=== PATIENT | female | born 1955 | race Caucasian/White ===

== ENCOUNTER 2017-05-04 10:01 | Inpatient (IN) | payer OTHER ==
[2017-05-04 14:09] LABS: WHITE BLOOD COUNT 8.3 10^3/ul (4.8-10.8)
[2017-05-04 14:09] LABS: ABNORMAL IP MESSAGE 1; HEMATOCRIT 16.1 % (37.0-47.0); MEAN CORPUSCULAR HEMOGLOBIN 29.2 pg (29.0-33.0); MEAN CORPUSCULAR HGB CONC 33.5 g/dl (32.0-37.0); MEAN PLATELET VOLUME 10.7 fl (7.4-10.4); PLATELET COUNT 208 10^3/UL (140-415); RED BLOOD COUNT 1.85 10^6/ul (4.20-5.40)
[2017-05-04 14:13] LABS: POSITIVE DIFF @See below
[2017-05-04 14:15] LABS: ADD MAN DIFF? YES; HEMOGLOBIN 5.4 g/dl (12.0-16.0); PATH REVIEW? YES
[2017-05-04 14:31] LABS: INR 0.95; PROTIME 12.8 Sec (11.9-14.9)
[2017-05-04 14:32] LABS: PARTIAL THROMBOPLASTIN TIME 31.7 Sec (25.0-35.0)
[2017-05-04 14:36] LABS: ALANINE AMINOTRANSFERASE 29 IU/L (13-69); ALBUMIN/GLOBULIN RATIO 1.14; ALKALINE PHOSPHATASE 106 IU/L (42-121); ANION GAP 28 (8-16); ASPARTATE AMINO TRANSFERASE 13 IU/L (15-46); CALCIUM 8.4 mg/dl (8.4-10.2); CARBON DIOXIDE 15 mmol/L (21-31); CHLORIDE 105 mmol/L (97-110); GLUCOSE 141 mg/dl (70-220); POTASSIUM 4.7 mmol/L (3.5-5.1); SODIUM 143 mmol/L (135-144); TOTAL PROTEIN 7.5 g/dl (6.1-8.1)
[2017-05-04 14:44] LABS: BLOOD UREA NITROGEN 140 mg/dl (7-20)
[2017-05-04 14:48] LABS: ANISOCYTOSIS 2+ (0-0); B-TYPE NATRIURETIC PEPTIDE 18700 PG/ML (0-125); BAND NEUTROPHILS #M 0.1 10^3/ul (0.0-0.6); BAND NEUTROPHILS % (M) 2 % (0-4); EOSINOPHILS % (M) 2 % (0-7); GIANT THROMBO% (M) 1 % (0-0); LYMPHOCYTES #M 1.5 10^3/ul (0.8-2.9); LYMPHOCYTES % (M) 19 % (15-51); MICROCYTOSIS 2+ (0-0); MONOCYTE #M 0.5 10^3/ul (0.3-0.9); MONOCYTES % (M) 7 % (0-11); PLATELET ESTIMATE NORMAL; PLATELET MORPHOLOGY COMMENT @See below; POLYCHROMASIA 3+ (0-0); SEGMENTED NEUTROPHILS (M) % 72 % (39-77); SMUDGE%M 3 % (0-0); TROPONIN-I 0.045 ng/ml (0.00-0.12)
[2017-05-04] MEDS ORDERED: SODIUM CHLORIDE 0.9% 1L BAG IV (16:00)
[2017-05-04] MEDS ORDERED: morphine 2 MG INJ IV (16:00)
[2017-05-04] MEDS ORDERED: NACL 0.9% 3 ML SYG IV (16:00)
[2017-05-04] MEDS ORDERED: DOCUSATE SODIUM 100 MG CAP PO (16:00)
[2017-05-04 16:36] LABS: URIC ACID 13.4 mg/dl (3.1-7.9)
[2017-05-04 16:44] LABS: PHOSPHORUS 12.6 mg/dl (2.5-4.9)
[2017-05-04] MEDS ORDERED: GLUCOSE GEL 15 GRAM TUBE BUCCAL (17:00)
[2017-05-04] MEDS ORDERED: GLUCOSE GEL 15 GRAM TUBE PO ×2 (17:00)
[2017-05-04] MEDS ORDERED: DEXTROSE 50% 50 ML SYRINGE IV ×2 (17:00)
[2017-05-04] MEDS ORDERED: GLUCAGON 1 MG INJ IM (17:00)
[2017-05-04] MEDS ORDERED: INSULIN ASPART [NOVOLOG] 3 ML PEN SC ×2 (18:00)
[2017-05-04] MEDS: INSULIN ASPART [NOVOLOG] 3 ML PEN SC ×2 (18:00→21:00)
[2017-05-04] MEDS: HEPARIN 1000 UNITS/ML 10 ML INJ CATHETER (19:00)
[2017-05-04 19:16] LABS: ADD UMIC YES; UR ASCORBIC ACID NEGATIVE (NEGATIVE); UR BACTERIA FEW /HPF (NONE SEEN); UR BILIRUBIN (Dip) NEGATIVE (NEGATIVE); UR BLOOD (Dip) 1+ mg/dL (NEGATIVE); UR CLARITY SLIGHTLY CLOUDY (CLEAR); UR COLOR YELLOW (YELLOW); UR GLUCOSE (Dip) 2+ mg/dL (NEGATIVE); UR KETONES (Dip) NEGATIVE (NEGATIVE); UR LEUKOCYTE ESTERASE (Dip) NEGATIVE Leu/ul (NEGATIVE); UR NITRITE (Dip) NEGATIVE (NEGATIVE); UR RBC 1 /HPF (0-5); UR SPECIFIC GRAVITY (Dip) 1.013 (1.003-1.030); UR SQUAMOUS EPITHELIAL CELL FEW /HPF (FEW); UR TOTAL PROTEIN (Dip) 3+ mg/dl (NEGATIVE); UR UROBILINOGEN (Dip) NEGATIVE (NEGATIVE); UR WBC 4 /HPF (0-5)
[2017-05-04] MEDS: hydrALAzine 20 MG INJ IV (21:17)
[2017-05-04] MEDS: FUROSEMIDE 40 MG INJ IV (23:04)
[2017-05-04] MEDS: LORAZEPAM 0.5 MG TAB PO (23:05)
[2017-05-04] MEDS: NA BICARBONATE 8.4% 50 ML SYG IV (23:05)
[2017-05-04] MEDS: ATORVASTATIN 40 MG TAB PO (23:32)
[2017-05-04] MEDS: SEVELAMER 800 MG TAB PO (23:32)
[2017-05-04] MEDS: SODIUM BICARBONATE (IV ADD) 100 MEQ in DEXTROSE 5% 1,000 ML IV (23:33)
[2017-05-05] MEDS: INSULIN GLARGINE [LANtus] 3 ML PEN SC ×2 (00:46→20:00)
[2017-05-05] MEDS: INSULIN ASPART [NOVOLOG] 3 ML PEN SC ×12 (00:48→21:00)
[2017-05-05] MEDS: ACCU-CHEK XX (02:00)
[2017-05-05] MEDS ORDERED: ACCU-CHEK XX (02:00)
[2017-05-05 06:38] LABS: ADD MAN DIFF? NO; HAAIG REFLEX REFLEX FILED
[2017-05-05 06:43] LABS: BASOPHILS % 0.5 % (0.0-2.0); HEMATOCRIT 22.7 % (37.0-47.0); HEMOGLOBIN 7.9 g/dl (12.0-16.0); LYMPHOCYTES % 11.5 % (15.0-51.0); MEAN CORPUSCULAR HEMOGLOBIN 30.2 pg (29.0-33.0); MEAN CORPUSCULAR HGB CONC 34.8 g/dl (32.0-37.0); MEAN CORPUSCULAR VOLUME 86.6 fl (82.0-101.0); MEAN PLATELET VOLUME 10.7 fl (7.4-10.4); MONOCYTE # 0.5 10^3/ul (0.3-0.9); MONOCYTES % 6.1 % (0.0-11.0); NEUTROPHIL # 6.8 10^3/ul (1.6-7.5); NEUTROPHILS % 81.2 % (39.0-77.0); PLATELET COUNT 180 10^3/UL (140-415); RED BLOOD COUNT 2.62 10^6/ul (4.20-5.40); RED CELL DISTRIBUTION WIDTH 15.3 % (11.5-14.5)
[2017-05-05 06:43] LABS: WHITE BLOOD COUNT 8.4 10^3/ul (4.8-10.8)
[2017-05-05 07:13] LABS: ALANINE AMINOTRANSFERASE 33 IU/L (13-69); ALBUMIN 3.8 g/dl (3.3-4.9); ALBUMIN/GLOBULIN RATIO 1.15; ALKALINE PHOSPHATASE 90 IU/L (42-121); ANION GAP 28 (8-16); ASPARTATE AMINO TRANSFERASE 14 IU/L (15-46); BILIRUBIN,INDIRECT 0.1 mg/dl (0-1.1); BILIRUBIN,TOTAL 0.1 mg/dl (0.2-1.3); CALCIUM 8.4 mg/dl (8.4-10.2); CARBON DIOXIDE 18 mmol/L (21-31); CHLORIDE 106 mmol/L (97-110); GLUCOSE 88 mg/dl (70-220); POTASSIUM 4.6 mmol/L (3.5-5.1); SODIUM 147 mmol/L (135-144); TOTAL PROTEIN 7.1 g/dl (6.1-8.1)
[2017-05-05 07:34] LABS: BLOOD UREA NITROGEN 141 mg/dl (7-20); CREATININE 16.34 mg/dl (0.44-1.00)
[2017-05-05 07:49] LABS: HEPATITIS B SURFACE ANTIGEN NEGATIVE (NEGATIVE)
[2017-05-05 08:07] LABS: HEPATITIS B CORE ANTIBODY NEGATIVE (NEGATIVE)
[2017-05-05] MEDS: FUROSEMIDE 40 MG INJ IV ×2 (08:54→17:18)
[2017-05-05] MEDS: ASPIRIN (EC) 81 MG TAB PO (08:54)
[2017-05-05] MEDS: ALLOPURINOL 100 MG TAB PO (08:55)
[2017-05-05] MEDS: NIFEdipine (XL) 30 MG TAB PO (08:55)
[2017-05-05] MEDS ORDERED: LABETALOL HCL 20MG INJ IV (09:30)
[2017-05-05 11:16] LABS: HEPATITIS C VIRAL ANTIBODY NEGATIVE (NEGATIVE)
[2017-05-05] MEDS: SODIUM BICARBONATE (IV ADD) 100 MEQ in DEXTROSE 5% 1,000 ML IV (14:49)
[2017-05-05 16:49] LABS: PATH REVIEW CH
[2017-05-05] MEDS: EPOETIN ALFA (NESRD) 3,000 UNITS/ML VIAL SC (17:13)
[2017-05-05] MEDS: MANNITOL 25% 50 ML IV (20:12)
[2017-05-05 20:25] LABS: IMMEDIATE SPIN CROSSMATCH 1 4
[2017-05-05] MEDS: ATORVASTATIN 40 MG TAB PO (21:00)
[2017-05-05] MEDS: HEPARIN 1000 UNITS/ML 10 ML INJ CATHETER (21:01)
[2017-05-05] MEDS: hydrALAzine 20 MG INJ IV (21:23)
[2017-05-06] MEDS: ACETAMINOPHEN 325 MG TAB PO ×3 (00:29→15:27)
[2017-05-06] MEDS: ACCU-CHEK XX (02:00)
[2017-05-06] MEDS: ONDANSETRON 4 MG INJ IV (02:22)
[2017-05-06] MEDS: LORAZEPAM 0.5 MG TAB PO (02:22)
[2017-05-06] MEDS: FUROSEMIDE 40 MG INJ IV ×2 (05:54→18:42)
[2017-05-06 06:17] LABS: ADD MAN DIFF? NO
[2017-05-06 06:29] LABS: BASOPHILS % 0.3 % (0.0-2.0); HEMATOCRIT 24.4 % (37.0-47.0); HEMOGLOBIN 8.5 g/dl (12.0-16.0); LYMPHOCYTES # 0.6 10^3/ul (0.8-2.9); LYMPHOCYTES % 8.3 % (15.0-51.0); MEAN CORPUSCULAR HEMOGLOBIN 29.9 pg (29.0-33.0); MEAN CORPUSCULAR HGB CONC 34.8 g/dl (32.0-37.0); MEAN CORPUSCULAR VOLUME 85.9 fl (82.0-101.0); MEAN PLATELET VOLUME 10.6 fl (7.4-10.4); MONOCYTE # 0.6 10^3/ul (0.3-0.9); MONOCYTES % 8.5 % (0.0-11.0); NEUTROPHILS % 82.6 % (39.0-77.0); PLATELET COUNT 153 10^3/UL (140-415); RED BLOOD COUNT 2.84 10^6/ul (4.20-5.40); RED CELL DISTRIBUTION WIDTH 14.6 % (11.5-14.5)
[2017-05-06 06:29] LABS: WHITE BLOOD COUNT 7.3 10^3/ul (4.8-10.8)
[2017-05-06 06:44] LABS: ANION GAP 19 (8-16); BLOOD UREA NITROGEN 88 mg/dl (7-20); CARBON DIOXIDE 27 mmol/L (21-31); CHLORIDE 102 mmol/L (97-110); CREATININE 11.16 mg/dl (0.44-1.00); GLUCOSE 102 mg/dl (70-220); MAGNESIUM 2.4 mg/dl (1.7-2.5); PHOSPHORUS 7.8 mg/dl (2.5-4.9); POTASSIUM 4.4 mmol/L (3.5-5.1); SODIUM 144 mmol/L (135-144)
[2017-05-06] MEDS: ASPIRIN (EC) 81 MG TAB PO (08:10)
[2017-05-06] MEDS: NIFEdipine (XL) 30 MG TAB PO (08:10)
[2017-05-06] MEDS: ALLOPURINOL 100 MG TAB PO (08:10)
[2017-05-06] MEDS: INSULIN ASPART [NOVOLOG] 3 ML PEN SC ×7 (08:13→20:14)
[2017-05-06] MEDS: MENTHOL/METH SALICYLATE 30 GM OINT TOP ×3 (12:06→20:09)
[2017-05-06] MEDS ORDERED: ALBUMIN HUMAN 25% 50 ML IV (13:00)
[2017-05-06] MEDS ORDERED: SODIUM CHLORIDE 0.9% 1L BAG IV (13:00)
[2017-05-06] MEDS: MANNITOL 25% 50 ML IV (15:46)
[2017-05-06] MEDS: LOSARTAN 25 MG TAB PO (18:00)
[2017-05-06] MEDS: HEPARIN 1000 UNITS/ML 10 ML INJ CATHETER (18:11)
[2017-05-06] MEDS: SEVELAMER 800 MG TAB PO (18:42)
[2017-05-06] MEDS: ATORVASTATIN 40 MG TAB PO (20:08)
[2017-05-06] MEDS: INSULIN GLARGINE [LANtus] 3 ML PEN SC (20:19)
[2017-05-07] MEDS: hydrALAzine 20 MG INJ IV (02:11)
[2017-05-07] MEDS: ACETAMINOPHEN 325 MG TAB PO ×2 (02:11→12:56)
[2017-05-07] MEDS: ACCU-CHEK XX (02:15)
[2017-05-07] MEDS: FUROSEMIDE 40 MG INJ IV (05:38)
[2017-05-07 07:27] LABS: ADD MAN DIFF? NO
[2017-05-07 07:38] LABS: BASOPHIL # 0.1 10^3/ul (0.0-0.1); BASOPHILS % 0.7 % (0.0-2.0); HEMATOCRIT 26.5 % (37.0-47.0); HEMOGLOBIN 8.9 g/dl (12.0-16.0); LYMPHOCYTES # 0.7 10^3/ul (0.8-2.9); LYMPHOCYTES % 10.1 % (15.0-51.0); MEAN CORPUSCULAR HEMOGLOBIN 29.8 pg (29.0-33.0); MEAN CORPUSCULAR HGB CONC 33.6 g/dl (32.0-37.0); MEAN CORPUSCULAR VOLUME 88.6 fl (82.0-101.0); MEAN PLATELET VOLUME 10.8 fl (7.4-10.4); MONOCYTE # 0.7 10^3/ul (0.3-0.9); MONOCYTES % 10.1 % (0.0-11.0); NEUTROPHIL # 5.5 10^3/ul (1.6-7.5); NEUTROPHILS % 78.8 % (39.0-77.0); PLATELET COUNT 157 10^3/UL (140-415); RED BLOOD COUNT 2.99 10^6/ul (4.20-5.40); RED CELL DISTRIBUTION WIDTH 14.6 % (11.5-14.5)
[2017-05-07 08:02] LABS: ANION GAP 17 (8-16); BLOOD UREA NITROGEN 48 mg/dl (7-20); CALCIUM 8.1 mg/dl (8.4-10.2); CARBON DIOXIDE 29 mmol/L (21-31); CHLORIDE 101 mmol/L (97-110); CREATININE 7.94 mg/dl (0.44-1.00); GLUCOSE 113 mg/dl (70-220); MAGNESIUM 2.1 mg/dl (1.7-2.5); PHOSPHORUS 5.8 mg/dl (2.5-4.9); POTASSIUM 4.4 mmol/L (3.5-5.1); SODIUM 143 mmol/L (135-144)
[2017-05-07] MEDS: INSULIN ASPART [NOVOLOG] 3 ML PEN SC ×7 (08:15→20:53)
[2017-05-07] MEDS: ALLOPURINOL 100 MG TAB PO (08:36)
[2017-05-07] MEDS: MULTIVIT/CA CARB/B CMPLX/FA TAB GTB (08:37)
[2017-05-07] MEDS: ASPIRIN (EC) 81 MG TAB PO (08:37)
[2017-05-07] MEDS: NIFEdipine (XL) 30 MG TAB PO (08:38)
[2017-05-07] MEDS: LOSARTAN 25 MG TAB PO (08:38)
[2017-05-07] MEDS: MENTHOL/METH SALICYLATE 30 GM OINT TOP ×3 (08:39→21:00)
[2017-05-07] MEDS: SEVELAMER 800 MG TAB PO ×3 (08:39→18:00)
[2017-05-07] MEDS: AL HYDROX/MG HYDROX/SIMETH 30 ML CUP PO ×2 (17:07→20:20)
[2017-05-07] MEDS: BISACODYL (EC) 5 MG TAB PO (19:29)
[2017-05-07] MEDS: FUROSEMIDE 20 MG TAB PO (20:00)
[2017-05-07] MEDS: INSULIN GLARGINE [LANtus] 3 ML PEN SC (20:00)
[2017-05-07] MEDS: ATORVASTATIN 40 MG TAB PO (20:20)
[2017-05-07] MEDS: FAMOTIDINE 20 MG TAB PO (20:20)
[2017-05-07] MEDS: SENNA TAB PO (20:20)
[2017-05-07] MEDS ORDERED: FUROSEMIDE 40 MG INJ ZFS (21:00)
[2017-05-08] MEDS: INSULIN ASPART [NOVOLOG] 3 ML PEN SC ×9 (00:36→20:57)
[2017-05-08] MEDS: HEPARIN 1000 UNITS/ML 10 ML INJ CATHETER (03:50)
[2017-05-08] MEDS: EPOETIN ALFA (NESRD) 3,000 UNITS/ML VIAL SC (04:15)
[2017-05-08 06:03] LABS: ADD MAN DIFF? NO
[2017-05-08 06:07] LABS: WHITE BLOOD COUNT 9.2 10^3/ul (4.8-10.8)
[2017-05-08 06:07] LABS: BASOPHILS % 0.4 % (0.0-2.0); HEMATOCRIT 27.2 % (37.0-47.0); HEMOGLOBIN 9.3 g/dl (12.0-16.0); LYMPHOCYTES # 0.7 10^3/ul (0.8-2.9); MEAN CORPUSCULAR HEMOGLOBIN 30.2 pg (29.0-33.0); MEAN CORPUSCULAR HGB CONC 34.2 g/dl (32.0-37.0); MEAN CORPUSCULAR VOLUME 88.3 fl (82.0-101.0); MEAN PLATELET VOLUME 10.1 fl (7.4-10.4); MONOCYTE # 0.9 10^3/ul (0.3-0.9); MONOCYTES % 9.8 % (0.0-11.0); NEUTROPHIL # 7.6 10^3/ul (1.6-7.5); NEUTROPHILS % 82.5 % (39.0-77.0); PLATELET COUNT 172 10^3/UL (140-415); RED BLOOD COUNT 3.08 10^6/ul (4.20-5.40); RED CELL DISTRIBUTION WIDTH 14.6 % (11.5-14.5)
[2017-05-08 06:35] LABS: ANION GAP 19 (8-16); BLOOD UREA NITROGEN 31 mg/dl (7-20); CALCIUM 8.1 mg/dl (8.4-10.2); CARBON DIOXIDE 29 mmol/L (21-31); CHLORIDE 100 mmol/L (97-110); CREATININE 5.88 mg/dl (0.44-1.00); GLUCOSE 136 mg/dl (70-220); MAGNESIUM 2.1 mg/dl (1.7-2.5); PHOSPHORUS 4.5 mg/dl (2.5-4.9); SODIUM 144 mmol/L (135-144)
[2017-05-08] MEDS: ACETAMINOPHEN 325 MG TAB PO ×2 (07:23→14:32)
[2017-05-08] MEDS: SEVELAMER 800 MG TAB PO ×3 (08:06→17:16)
[2017-05-08] MEDS: MENTHOL/METH SALICYLATE 30 GM OINT TOP ×3 (08:06→20:58)
[2017-05-08] MEDS: MULTIVIT/CA CARB/B CMPLX/FA TAB GTB (08:06)
[2017-05-08] MEDS: SENNA TAB PO ×2 (08:06→20:51)
[2017-05-08] MEDS: ALLOPURINOL 100 MG TAB PO (08:07)
[2017-05-08] MEDS: NIFEdipine (XL) 30 MG TAB PO (08:09)
[2017-05-08] MEDS: LOSARTAN 25 MG TAB PO (08:09)
[2017-05-08] MEDS: INFLUENZA VIRUS VACCINE 0.5 ML (DISPENSING) IM* (09:35)
[2017-05-08] MEDS ORDERED: HEPARIN 1000 UNITS/ML 10 ML INJ CATHETER (17:30)
[2017-05-08] MEDS ORDERED: ALBUMIN HUMAN 25% 50 ML IV (17:30)
[2017-05-08] MEDS ORDERED: SODIUM CHLORIDE 0.9% 1L BAG IV (17:30)
[2017-05-08] MEDS: ATORVASTATIN 40 MG TAB PO (20:51)
[2017-05-08] MEDS: PRAMIPEXOLE 0.125 MG TAB PO (20:51)
[2017-05-08] MEDS: FAMOTIDINE 20 MG TAB PO (20:51)
[2017-05-08] MEDS: ROPINIROLE 0.25 MG TAB PO (20:51)
[2017-05-09] MEDS: ACCUCHECK AT 2AM (Patients on SS coverage) XX (01:00)
[2017-05-09] MEDS: HYDROCODONE/APAP (5/325) TAB PO (03:13)
[2017-05-09 05:52] LABS: ADD MAN DIFF? NO
[2017-05-09 06:03] LABS: ABNORMAL IP MESSAGE 1; BASOPHIL # 0.1 10^3/ul (0.0-0.1); BASOPHILS % 0.6 % (0.0-2.0); HEMATOCRIT 25.8 % (37.0-47.0); HEMOGLOBIN 8.4 g/dl (12.0-16.0); LYMPHOCYTES # 0.6 10^3/ul (0.8-2.9); LYMPHOCYTES % 7.5 % (15.0-51.0); MEAN CORPUSCULAR HEMOGLOBIN 29.7 pg (29.0-33.0); MEAN CORPUSCULAR HGB CONC 32.6 g/dl (32.0-37.0); MEAN CORPUSCULAR VOLUME 91.2 fl (82.0-101.0); MEAN PLATELET VOLUME 11.3 fl (7.4-10.4); MONOCYTE # 0.7 10^3/ul (0.3-0.9); MONOCYTES % 8.4 % (0.0-11.0); NEUTROPHIL # 6.5 10^3/ul (1.6-7.5); NEUTROPHILS % 83.2 % (39.0-77.0); PLATELET COUNT 184 10^3/UL (140-415); RED BLOOD COUNT 2.83 10^6/ul (4.20-5.40); RED CELL DISTRIBUTION WIDTH 14.2 % (11.5-14.5)
[2017-05-09 06:03] LABS: WHITE BLOOD COUNT 7.8 10^3/ul (4.8-10.8)
[2017-05-09 06:14] LABS: ANION GAP 20 (8-16); BLOOD UREA NITROGEN 48 mg/dl (7-20); CALCIUM 8.4 mg/dl (8.4-10.2); CARBON DIOXIDE 27 mmol/L (21-31); CHLORIDE 101 mmol/L (97-110); CREATININE 8.84 mg/dl (0.44-1.00); GLUCOSE 165 mg/dl (70-220); MAGNESIUM 2.4 mg/dl (1.7-2.5); PHOSPHORUS 7.3 mg/dl (2.5-4.9); POTASSIUM 4.8 mmol/L (3.5-5.1); SODIUM 143 mmol/L (135-144)
[2017-05-09 06:16] LABS: POSITIVE DIFF @See below
[2017-05-09] MEDS: INSULIN ASPART [NOVOLOG] 3 ML PEN SC ×7 (08:08→22:19)
[2017-05-09] MEDS: MENTHOL/METH SALICYLATE 30 GM OINT TOP ×3 (08:19→20:37)
[2017-05-09] MEDS: ALLOPURINOL 100 MG TAB PO (08:19)
[2017-05-09] MEDS: SENNA TAB PO ×2 (08:19→20:36)
[2017-05-09] MEDS: MULTIVIT/CA CARB/B CMPLX/FA TAB GTB (08:19)
[2017-05-09] MEDS: SEVELAMER 800 MG TAB PO ×4 (08:19→20:41)
[2017-05-09] MEDS: LOSARTAN 25 MG TAB PO (12:06)
[2017-05-09] MEDS: NIFEdipine (XL) 30 MG TAB PO (12:07)
[2017-05-09] MEDS: GABAPENTIN (50 MG/ML PO SYG) NGT (12:10)
[2017-05-09] MEDS: GABAPENTIN 300 MG CAP PO ×2 (13:00→20:36)
[2017-05-09] MEDS: HEPARIN 1000 UNITS/ML 10 ML INJ CATHETER (19:40)
[2017-05-09] MEDS: PRAMIPEXOLE 0.125 MG TAB PO (20:36)
[2017-05-09] MEDS: FAMOTIDINE 20 MG TAB PO (20:36)
[2017-05-09] MEDS: ATORVASTATIN 40 MG TAB PO (20:36)
[2017-05-09] MEDS: ROPINIROLE 0.25 MG TAB PO (20:45)
[2017-05-09] MEDS: EPOETIN ALFA (NESRD) 3,000 UNITS/ML VIAL SC (20:58)
[2017-05-10] MEDS: ACCUCHECK AT 2AM (Patients on SS coverage) XX (02:00)
[2017-05-10] MEDS: ACETAMINOPHEN 325 MG TAB PO (02:29)
[2017-05-10 05:36] LABS: ADD MAN DIFF? NO
[2017-05-10 05:43] LABS: WHITE BLOOD COUNT 6.9 10^3/ul (4.8-10.8)
[2017-05-10 05:43] LABS: BASOPHIL # 0.1 10^3/ul (0.0-0.1); BASOPHILS % 0.7 % (0.0-2.0); HEMOGLOBIN 8.1 g/dl (12.0-16.0); LYMPHOCYTES # 0.6 10^3/ul (0.8-2.9); LYMPHOCYTES % 8.8 % (15.0-51.0); MEAN CORPUSCULAR HEMOGLOBIN 29.2 pg (29.0-33.0); MEAN CORPUSCULAR HGB CONC 32.4 g/dl (32.0-37.0); MEAN CORPUSCULAR VOLUME 90.3 fl (82.0-101.0); MONOCYTE # 0.6 10^3/ul (0.3-0.9); MONOCYTES % 9.1 % (0.0-11.0); NEUTROPHIL # 5.6 10^3/ul (1.6-7.5); NEUTROPHILS % 81.3 % (39.0-77.0); PLATELET COUNT 200 10^3/UL (140-415); RED BLOOD COUNT 2.77 10^6/ul (4.20-5.40); RED CELL DISTRIBUTION WIDTH 14.2 % (11.5-14.5)
[2017-05-10 06:24] LABS: ANION GAP 16 (8-16); BLOOD UREA NITROGEN 27 mg/dl (7-20); CALCIUM 9.1 mg/dl (8.4-10.2); CARBON DIOXIDE 31 mmol/L (21-31); CHLORIDE 101 mmol/L (97-110); CREATININE 5.73 mg/dl (0.44-1.00); GLUCOSE 102 mg/dl (70-220); MAGNESIUM 2.3 mg/dl (1.7-2.5); PHOSPHORUS 4.6 mg/dl (2.5-4.9); POTASSIUM 4.8 mmol/L (3.5-5.1); SODIUM 143 mmol/L (135-144)
[2017-05-10] MEDS: INSULIN ASPART [NOVOLOG] 3 ML PEN SC ×7 (08:15→20:53)
[2017-05-10] MEDS: MULTIVIT/CA CARB/B CMPLX/FA TAB GTB (08:49)
[2017-05-10] MEDS: SEVELAMER 800 MG TAB PO ×3 (08:49→17:44)
[2017-05-10] MEDS: GABAPENTIN 300 MG CAP PO ×3 (08:49→20:46)
[2017-05-10] MEDS: SENNA TAB PO ×2 (08:50→20:46)
[2017-05-10] MEDS: LOSARTAN 25 MG TAB PO (08:50)
[2017-05-10] MEDS: NIFEdipine (XL) 30 MG TAB PO (08:51)
[2017-05-10] MEDS: ALLOPURINOL 100 MG TAB PO (08:51)
[2017-05-10] MEDS: MENTHOL/METH SALICYLATE 30 GM OINT TOP ×3 (08:52→20:54)
[2017-05-10] MEDS ORDERED: EPOETIN 3000 UNITS/1 ML INJ (ESRD) SC (18:00)
[2017-05-10] MEDS: FAMOTIDINE 20 MG TAB PO (20:46)
[2017-05-10] MEDS: PRAMIPEXOLE 0.125 MG TAB PO (20:46)
[2017-05-10] MEDS: ATORVASTATIN 40 MG TAB PO (20:46)
[2017-05-10] MEDS: ROPINIROLE 0.25 MG TAB PO (22:12)
[2017-05-11] MEDS: ACCUCHECK AT 2AM (Patients on SS coverage) XX (02:00)
[2017-05-11 06:14] LABS: ADD MAN DIFF? NO
[2017-05-11 06:25] LABS: BASOPHIL # 0.1 10^3/ul (0.0-0.1); BASOPHILS % 0.6 % (0.0-2.0); HEMATOCRIT 26.3 % (37.0-47.0); HEMOGLOBIN 8.5 g/dl (12.0-16.0); LYMPHOCYTES # 0.8 10^3/ul (0.8-2.9); LYMPHOCYTES % 9.5 % (15.0-51.0); MEAN CORPUSCULAR HEMOGLOBIN 29.5 pg (29.0-33.0); MEAN CORPUSCULAR HGB CONC 32.3 g/dl (32.0-37.0); MEAN CORPUSCULAR VOLUME 91.3 fl (82.0-101.0); MEAN PLATELET VOLUME 10.8 fl (7.4-10.4); MONOCYTE # 0.9 10^3/ul (0.3-0.9); MONOCYTES % 10.5 % (0.0-11.0); NEUTROPHIL # 6.6 10^3/ul (1.6-7.5); NEUTROPHILS % 79.2 % (39.0-77.0); PLATELET COUNT 219 10^3/UL (140-415); RED BLOOD COUNT 2.88 10^6/ul (4.20-5.40); RED CELL DISTRIBUTION WIDTH 13.9 % (11.5-14.5)
[2017-05-11 06:25] LABS: WHITE BLOOD COUNT 8.3 10^3/ul (4.8-10.8)
[2017-05-11 07:17] LABS: ALANINE AMINOTRANSFERASE 22 IU/L (13-69); ALBUMIN 3.3 g/dl (3.3-4.9); ALBUMIN/GLOBULIN RATIO 0.97; ALKALINE PHOSPHATASE 87 IU/L (42-121); ANION GAP 19 (8-16); ASPARTATE AMINO TRANSFERASE 14 IU/L (15-46); BILIRUBIN,INDIRECT 0.3 mg/dl (0-1.1); BILIRUBIN,TOTAL 0.3 mg/dl (0.2-1.3); BLOOD UREA NITROGEN 42 mg/dl (7-20); CALCIUM 8.5 mg/dl (8.4-10.2); CARBON DIOXIDE 25 mmol/L (21-31); CHLORIDE 103 mmol/L (97-110); CREATININE 8.44 mg/dl (0.44-1.00); GLUCOSE 117 mg/dl (70-220); POTASSIUM 4.8 mmol/L (3.5-5.1); SODIUM 142 mmol/L (135-144); TOTAL PROTEIN 6.7 g/dl (6.1-8.1)
[2017-05-11] MEDS: SEVELAMER 800 MG TAB PO ×3 (07:48→17:35)
[2017-05-11] MEDS: INSULIN ASPART [NOVOLOG] 3 ML PEN SC ×7 (07:49→23:15)
[2017-05-11] MEDS: SENNA TAB PO ×2 (08:13→23:10)
[2017-05-11] MEDS: FOLIC ACID 1 MG TAB PO (08:14)
[2017-05-11] MEDS: ALLOPURINOL 100 MG TAB PO (08:14)
[2017-05-11] MEDS: GABAPENTIN 300 MG CAP PO ×3 (08:14→23:09)
[2017-05-11] MEDS: MULTIVIT/CA CARB/B CMPLX/FA TAB GTB (08:16)
[2017-05-11] MEDS: MENTHOL/METH SALICYLATE 30 GM OINT TOP ×3 (08:17→23:11)
[2017-05-11] MEDS: NIFEdipine (XL) 30 MG TAB PO (08:22)
[2017-05-11] MEDS: LOSARTAN 25 MG TAB PO (08:22)
[2017-05-11] MEDS: MULTIVIT/CA CARB/B CMPLX/FA TAB PO (08:25)
[2017-05-11] MEDS: ACETAMINOPHEN 325 MG TAB PO (10:50)
[2017-05-11] MEDS: HEPARIN 1000 UNITS/ML 10 ML INJ CATHETER (17:14)
[2017-05-11] MEDS: ROPINIROLE 0.25 MG TAB PO (21:00)
[2017-05-11] MEDS: EPOETIN ALFA (NESRD) 3,000 UNITS/ML VIAL SC (23:08)
[2017-05-11] MEDS: PRAMIPEXOLE 0.125 MG TAB PO (23:09)
[2017-05-11] MEDS: ATORVASTATIN 40 MG TAB PO (23:10)
[2017-05-11] MEDS: FAMOTIDINE 20 MG TAB PO (23:10)
[2017-05-12] MEDS: ACCUCHECK AT 2AM (Patients on SS coverage) XX ×2 (02:00→22:04)
[2017-05-12] MEDS: ROPINIROLE 0.25 MG TAB PO (02:06)
[2017-05-12] MEDS: INSULIN ASPART [NOVOLOG] 3 ML PEN SC ×7 (08:15→21:00)
[2017-05-12] MEDS: GABAPENTIN 300 MG CAP PO ×2 (08:36→12:59)
[2017-05-12] MEDS: ALLOPURINOL 100 MG TAB PO (08:36)
[2017-05-12] MEDS: FOLIC ACID 1 MG TAB PO (08:36)
[2017-05-12] MEDS: SEVELAMER 800 MG TAB PO ×3 (08:36→17:02)
[2017-05-12] MEDS: MULTIVIT/CA CARB/B CMPLX/FA TAB GTB (08:36)
[2017-05-12] MEDS: LOSARTAN 25 MG TAB PO (08:37)
[2017-05-12] MEDS: NIFEdipine (XL) 30 MG TAB PO (08:38)
[2017-05-12] MEDS: ACETAMINOPHEN 325 MG TAB PO ×2 (08:38→17:02)
[2017-05-12] MEDS: SENNA TAB PO ×2 (09:00→21:00)
[2017-05-12] MEDS: MULTIVIT/CA CARB/B CMPLX/FA TAB PO (09:00)
[2017-05-12] MEDS: MENTHOL/METH SALICYLATE 30 GM OINT TOP ×3 (09:00→21:00)
[2017-05-12 13:09] LABS: ADD MAN DIFF? NO
[2017-05-12 13:12] LABS: WHITE BLOOD COUNT 6.7 10^3/ul (4.8-10.8)
[2017-05-12 13:12] LABS: BASOPHILS % 0.3 % (0.0-2.0); HEMATOCRIT 24.8 % (37.0-47.0); HEMOGLOBIN 8.1 g/dl (12.0-16.0); LYMPHOCYTES # 0.8 10^3/ul (0.8-2.9); LYMPHOCYTES % 11.1 % (15.0-51.0); MEAN CORPUSCULAR HEMOGLOBIN 29.7 pg (29.0-33.0); MEAN CORPUSCULAR HGB CONC 32.7 g/dl (32.0-37.0); MEAN CORPUSCULAR VOLUME 90.8 fl (82.0-101.0); MEAN PLATELET VOLUME 10.4 fl (7.4-10.4); MONOCYTE # 0.7 10^3/ul (0.3-0.9); NEUTROPHIL # 5.2 10^3/ul (1.6-7.5); NEUTROPHILS % 77.3 % (39.0-77.0); PLATELET COUNT 242 10^3/UL (140-415); RED BLOOD COUNT 2.73 10^6/ul (4.20-5.40); RED CELL DISTRIBUTION WIDTH 13.8 % (11.5-14.5)
[2017-05-12] MEDS ORDERED: LIDOCAINE 1% (MPF) 30 ML INJ (13:54)
[2017-05-12] MEDS ORDERED: HEPARIN 1000 UNITS/ML 10 ML INJ (13:54)
[2017-05-12] MEDS ORDERED: POLYMYXIN/BACITRACIN 1L IRRIG (13:57)
[2017-05-12] MEDS ORDERED: IOHEXOL 300MG/ML 30 ML BTL ×2 (13:57→18:31)
[2017-05-12] MEDS: EPOETIN ALFA (NESRD) 3,000 UNITS/ML VIAL SC (16:50)
[2017-05-12] MEDS ORDERED: PROPOFOL 20 ML (18:45)
[2017-05-12] MEDS ORDERED: MIDAZOLAM 1 MG/ML 2 ML INJ (18:46)
[2017-05-12] MEDS ORDERED: LIDOCAINE 1% (MDV) 20 ML INJ (18:46)
[2017-05-12] MEDS ORDERED: KETAMINE 500 MG INJ (18:55)
[2017-05-12] MEDS ORDERED: CEFAZOLIN 1 GM INJ (18:56)
[2017-05-12] MEDS ORDERED: LABETALOL HCL 20MG INJ (19:06)
[2017-05-12] MEDS: HEPARIN 1000 UNITS/ML 10 ML INJ (19:38)
[2017-05-12] MEDS: LIDOCAINE 1% (MPF) 30 ML INJ (19:39)
[2017-05-12] MEDS ORDERED: HYDROmorphONE (0.2 MG/ML) 10ML SYG IV (20:00)
[2017-05-12] MEDS ORDERED: PREGABALIN 100 MG CAP PO (21:00)
[2017-05-12] MEDS: ATORVASTATIN 40 MG TAB PO (21:36)
[2017-05-12] MEDS: PREGABALIN 50 MG CAP PO (21:37)
[2017-05-12] MEDS: FAMOTIDINE 20 MG TAB PO (21:37)
[2017-05-12] MEDS: AL HYDROX/MG HYDROX/SIMETH 30 ML CUP PO (22:21)
[2017-05-13] MEDS: INSULIN ASPART [NOVOLOG] 3 ML PEN SC ×7 (07:54→21:00)
[2017-05-13] MEDS: SEVELAMER 800 MG TAB PO ×3 (08:18→17:26)
[2017-05-13] MEDS: ALLOPURINOL 100 MG TAB PO (08:19)
[2017-05-13] MEDS: LOSARTAN 25 MG TAB PO (08:19)
[2017-05-13] MEDS: FOLIC ACID 1 MG TAB PO (08:19)
[2017-05-13] MEDS: SENNA TAB PO ×2 (08:19→23:44)
[2017-05-13] MEDS: NIFEdipine (XL) 30 MG TAB PO (08:20)
[2017-05-13] MEDS: MULTIVIT/CA CARB/B CMPLX/FA TAB GTB (08:23)
[2017-05-13] MEDS: PREGABALIN 50 MG CAP PO ×2 (08:23→23:46)
[2017-05-13] MEDS: MULTIVIT/CA CARB/B CMPLX/FA TAB PO (08:23)
[2017-05-13] MEDS: MENTHOL/METH SALICYLATE 30 GM OINT TOP ×3 (08:29→23:46)
[2017-05-13] MEDS ORDERED: VANCOMYCIN IV PER PHARMACY XX (12:00)
[2017-05-13 15:09] LABS: CREATININE 9.71 mg/dl (0.44-1.00)
[2017-05-13 15:09] LABS: BLOOD UREA NITROGEN 53 mg/dl (7-20)
[2017-05-13] MEDS: VANCOMYCIN 1.5 GM in SOD CHLORIDE 0.9% 250 ML IVPB (15:16)
[2017-05-13] MEDS: HEPARIN 1000 UNITS/ML 10 ML INJ CATHETER (23:04)
[2017-05-13] MEDS: ATORVASTATIN 40 MG TAB PO (23:44)
[2017-05-13] MEDS: FAMOTIDINE 20 MG TAB PO (23:44)
[2017-05-14] MEDS: ACCUCHECK AT 2AM (Patients on SS coverage) XX (02:00)
[2017-05-14 06:18] LABS: HEMATOCRIT 23.5 % (37.0-47.0)
[2017-05-14 06:18] LABS: HEMOGLOBIN 7.8 g/dl (12.0-16.0)
[2017-05-14] MEDS: INSULIN ASPART [NOVOLOG] 3 ML PEN SC ×7 (08:15→20:48)
[2017-05-14] MEDS: SENNA TAB PO ×2 (08:49→20:44)
[2017-05-14] MEDS: SEVELAMER 800 MG TAB PO ×3 (08:49→17:33)
[2017-05-14] MEDS: FOLIC ACID 1 MG TAB PO (08:50)
[2017-05-14] MEDS: LOSARTAN 25 MG TAB PO (08:50)
[2017-05-14] MEDS: MULTIVIT/CA CARB/B CMPLX/FA TAB PO (08:50)
[2017-05-14] MEDS: NIFEdipine (XL) 30 MG TAB PO (08:50)
[2017-05-14] MEDS: PREGABALIN 50 MG CAP PO ×2 (08:51→20:44)
[2017-05-14] MEDS: ALLOPURINOL 100 MG TAB PO (08:51)
[2017-05-14] MEDS: MENTHOL/METH SALICYLATE 30 GM OINT TOP ×3 (08:52→20:48)
[2017-05-14] MEDS ORDERED: HEPARIN 1000 UNITS/ML 10 ML INJ CATHETER (16:30)
[2017-05-14] MEDS ORDERED: SODIUM CHLORIDE 0.9% 1L BAG IV (16:30)
[2017-05-14] MEDS ORDERED: ALBUMIN HUMAN 25% 50 ML IV (16:30)
[2017-05-14] MEDS: EPOETIN ALFA (NESRD) 3,000 UNITS/ML VIAL SC (18:29)
[2017-05-14] MEDS: ATORVASTATIN 40 MG TAB PO (20:44)
[2017-05-14] MEDS: FAMOTIDINE 20 MG TAB PO (20:44)
[2017-05-15] MEDS: ACCUCHECK AT 2AM (Patients on SS coverage) XX (02:00)
[2017-05-15 05:19] LABS: ADD MAN DIFF? NO
[2017-05-15 05:26] LABS: BASOPHILS % 0.7 % (0.0-2.0); HEMATOCRIT 23.8 % (37.0-47.0); HEMOGLOBIN 7.6 g/dl (12.0-16.0); LYMPHOCYTES # 0.7 10^3/ul (0.8-2.9); LYMPHOCYTES % 11.4 % (15.0-51.0); MEAN CORPUSCULAR HGB CONC 31.9 g/dl (32.0-37.0); MEAN CORPUSCULAR VOLUME 90.8 fl (82.0-101.0); MEAN PLATELET VOLUME 10.2 fl (7.4-10.4); MONOCYTE # 0.7 10^3/ul (0.3-0.9); MONOCYTES % 12.6 % (0.0-11.0); NEUTROPHIL # 4.4 10^3/ul (1.6-7.5); PLATELET COUNT 242 10^3/UL (140-415); RED BLOOD COUNT 2.62 10^6/ul (4.20-5.40); RED CELL DISTRIBUTION WIDTH 13.6 % (11.5-14.5)
[2017-05-15 05:26] LABS: WHITE BLOOD COUNT 5.9 10^3/ul (4.8-10.8)
[2017-05-15 05:58] LABS: MAGNESIUM 2.4 mg/dl (1.7-2.5)
[2017-05-15 05:58] LABS: PHOSPHORUS 5.5 mg/dl (2.5-4.9)
[2017-05-15 06:17] LABS: ANION GAP 22 (8-16); BLOOD UREA NITROGEN 55 mg/dl (7-20); CALCIUM 8.6 mg/dl (8.4-10.2); CARBON DIOXIDE 24 mmol/L (21-31); CHLORIDE 101 mmol/L (97-110); CREATININE 9.27 mg/dl (0.44-1.00); GLUCOSE 138 mg/dl (70-220); POTASSIUM 5.7 mmol/L (3.5-5.1); SODIUM 141 mmol/L (135-144)
[2017-05-15] MEDS: BISACODYL (EC) 5 MG TAB PO (06:34)
[2017-05-15 07:12] LABS: VANCOMYCIN,RANDOM < 5.0 ug/ml
[2017-05-15] MEDS: ALLOPURINOL 100 MG TAB PO (08:30)
[2017-05-15] MEDS: SEVELAMER 800 MG TAB PO ×3 (08:30→17:43)
[2017-05-15] MEDS: FOLIC ACID 1 MG TAB PO (08:30)
[2017-05-15] MEDS: MULTIVIT/CA CARB/B CMPLX/FA TAB PO (08:30)
[2017-05-15] MEDS: SENNA TAB PO ×2 (08:30→21:18)
[2017-05-15] MEDS: PREGABALIN 50 MG CAP PO (08:30)
[2017-05-15] MEDS: LOSARTAN 25 MG TAB PO (08:32)
[2017-05-15] MEDS: NIFEdipine (XL) 30 MG TAB PO (08:33)
[2017-05-15] MEDS: MENTHOL/METH SALICYLATE 30 GM OINT TOP ×3 (08:33→21:20)
[2017-05-15] MEDS: INSULIN ASPART [NOVOLOG] 3 ML PEN SC ×7 (08:37→21:00)
[2017-05-15] MEDS: VANCOMYCIN 1.25 GM in SOD CHLORIDE 0.9% 250 ML IVPB (12:28)
[2017-05-15] MEDS: HEPARIN 1000 UNITS/ML 10 ML INJ CATHETER (17:32)
[2017-05-15] MEDS: ATORVASTATIN 40 MG TAB PO (21:18)
[2017-05-15] MEDS: FAMOTIDINE 20 MG TAB PO (21:19)
[2017-05-16] MEDS: ACCUCHECK AT 2AM (Patients on SS coverage) XX (00:59)
[2017-05-16 06:01] LABS: HEMOGLOBIN 7.6 g/dl (12.0-16.0)
[2017-05-16 06:01] LABS: HEMATOCRIT 22.8 % (37.0-47.0)
[2017-05-16] MEDS: INSULIN ASPART [NOVOLOG] 3 ML PEN SC ×7 (08:15→21:00)
[2017-05-16] MEDS: SENNA TAB PO ×2 (08:20→19:44)
[2017-05-16] MEDS: NIFEdipine (XL) 30 MG TAB PO (08:21)
[2017-05-16] MEDS: SEVELAMER 800 MG TAB PO ×3 (08:21→17:57)
[2017-05-16] MEDS: ALLOPURINOL 100 MG TAB PO (08:21)
[2017-05-16] MEDS: MULTIVIT/CA CARB/B CMPLX/FA TAB PO (08:21)
[2017-05-16] MEDS: FOLIC ACID 1 MG TAB PO (08:21)
[2017-05-16] MEDS: MENTHOL/METH SALICYLATE 30 GM OINT TOP ×3 (08:22→19:44)
[2017-05-16] MEDS: LOSARTAN 25 MG TAB PO (08:26)
[2017-05-16] MEDS: BISACODYL 10 MG SUPP PR (13:44)
[2017-05-16] MEDS: EPOETIN ALFA (NESRD) 3,000 UNITS/ML VIAL SC (17:58)
[2017-05-16] MEDS: HYDROCODONE/APAP (5/325) TAB PO (19:38)
[2017-05-16] MEDS: ATORVASTATIN 40 MG TAB PO (19:43)
[2017-05-16] MEDS: FAMOTIDINE 20 MG TAB PO (19:43)
[2017-05-16] MEDS: GABAPENTIN 300 MG CAP PO (22:01)
[2017-05-16] MEDS: morphine 2 MG INJ IV ×2 (22:01→22:04)
[2017-05-17] MEDS: ACCUCHECK AT 2AM (Patients on SS coverage) XX (00:09)
[2017-05-17 06:20] LABS: ANION GAP 21 (8-16); BLOOD UREA NITROGEN 76 mg/dl (7-20); CALCIUM 8.6 mg/dl (8.4-10.2); CARBON DIOXIDE 22 mmol/L (21-31); CHLORIDE 102 mmol/L (97-110); CREATININE 10.42 mg/dl (0.44-1.00); GLUCOSE 126 mg/dl (70-220); POTASSIUM 4.9 mmol/L (3.5-5.1); SODIUM 140 mmol/L (135-144)
[2017-05-17] MEDS: INSULIN ASPART [NOVOLOG] 3 ML PEN SC ×7 (08:05→21:00)
[2017-05-17] MEDS: SEVELAMER 800 MG TAB PO ×3 (08:40→17:55)
[2017-05-17] MEDS: FOLIC ACID 1 MG TAB PO (08:40)
[2017-05-17] MEDS: ALLOPURINOL 100 MG TAB PO (08:40)
[2017-05-17] MEDS: GABAPENTIN 300 MG CAP PO ×3 (08:40→21:05)
[2017-05-17] MEDS: MULTIVIT/CA CARB/B CMPLX/FA TAB PO (08:40)
[2017-05-17] MEDS: SENNA TAB PO ×2 (08:40→21:05)
[2017-05-17] MEDS: LOSARTAN 25 MG TAB PO (08:41)
[2017-05-17] MEDS: NIFEdipine (XL) 30 MG TAB PO (08:41)
[2017-05-17] MEDS: MENTHOL/METH SALICYLATE 30 GM OINT TOP ×3 (08:42→21:00)
[2017-05-17] MEDS: ACETAMINOPHEN 325 MG TAB PO (12:29)
[2017-05-17] MEDS: PIPER-TAZO 2.25 GM (PMX) 50 ML IVPB ×2 (16:40→21:06)
[2017-05-17] MEDS: FAMOTIDINE 20 MG TAB PO (21:05)
[2017-05-17] MEDS: ATORVASTATIN 40 MG TAB PO (21:05)
[2017-05-18] MEDS: ACETAMINOPHEN 325 MG TAB PO ×2 (01:34→14:55)
[2017-05-18] MEDS: ACCUCHECK AT 2AM (Patients on SS coverage) XX (02:00)
[2017-05-18 05:42] LABS: ADD MAN DIFF? NO
[2017-05-18] MEDS: PIPER-TAZO 2.25 GM (PMX) 50 ML IVPB ×3 (05:44→21:52)
[2017-05-18 05:48] LABS: WHITE BLOOD COUNT 5.3 10^3/ul (4.8-10.8)
[2017-05-18 05:48] LABS: ABNORMAL IP MESSAGE 1; BASOPHILS % 0.6 % (0.0-2.0); EOSINOPHILS % 0.2 % (0.0-7.0); HEMATOCRIT 18.9 % (37.0-47.0); LYMPHOCYTES # 0.6 10^3/ul (0.8-2.9); MEAN CORPUSCULAR HEMOGLOBIN 29.2 pg (29.0-33.0); MEAN CORPUSCULAR HGB CONC 33.3 g/dl (32.0-37.0); MEAN CORPUSCULAR VOLUME 87.5 fl (82.0-101.0); MEAN PLATELET VOLUME 11.4 fl (7.4-10.4); MONOCYTE # 0.5 10^3/ul (0.3-0.9); MONOCYTES % 10.1 % (0.0-11.0); NEUTROPHIL # 4.1 10^3/ul (1.6-7.5); NEUTROPHILS % 77.3 % (39.0-77.0); PLATELET COUNT 206 10^3/UL (140-415); RED BLOOD COUNT 2.16 10^6/ul (4.20-5.40)
[2017-05-18 05:53] LABS: HEMOGLOBIN 6.3 g/dl (12.0-16.0); POSITIVE DIFF @See below
[2017-05-18 06:11] LABS: VANCOMYCIN,RANDOM 11.4 ug/ml
[2017-05-18 06:12] LABS: ALANINE AMINOTRANSFERASE 32 IU/L (13-69); ALBUMIN 3.2 g/dl (3.3-4.9); ALBUMIN/GLOBULIN RATIO 0.88; ALKALINE PHOSPHATASE 250 IU/L (42-121); ANION GAP 23 (8-16); ASPARTATE AMINO TRANSFERASE 52 IU/L (15-46); BILIRUBIN,INDIRECT 1.7 mg/dl (0-1.1); BILIRUBIN,TOTAL 2.1 mg/dl (0.2-1.3); BLOOD UREA NITROGEN 101 mg/dl (7-20); CALCIUM 8.2 mg/dl (8.4-10.2); CARBON DIOXIDE 17 mmol/L (21-31); CHLORIDE 102 mmol/L (97-110); CREATININE 12.37 mg/dl (0.44-1.00); GLUCOSE 106 mg/dl (70-220); SODIUM 136 mmol/L (135-144); TOTAL PROTEIN 6.8 g/dl (6.1-8.1)
[2017-05-18 06:17] LABS: POTASSIUM 6.2 mmol/L (3.5-5.1)
[2017-05-18] MEDS: INSULIN ASPART [NOVOLOG] 3 ML PEN SC ×7 (08:15→21:00)
[2017-05-18] MEDS: NIFEdipine (XL) 30 MG TAB PO (08:18)
[2017-05-18] MEDS: ALLOPURINOL 100 MG TAB PO (08:18)
[2017-05-18] MEDS: MENTHOL/METH SALICYLATE 30 GM OINT TOP ×3 (08:18→21:00)
[2017-05-18] MEDS: GABAPENTIN 300 MG CAP PO ×3 (08:18→21:44)
[2017-05-18] MEDS: SEVELAMER 800 MG TAB PO ×3 (08:18→17:46)
[2017-05-18] MEDS: MULTIVIT/CA CARB/B CMPLX/FA TAB PO (08:18)
[2017-05-18] MEDS: FOLIC ACID 1 MG TAB PO (08:18)
[2017-05-18] MEDS: SENNA TAB PO ×2 (08:18→21:00)
[2017-05-18] MEDS: LOSARTAN 25 MG TAB PO (08:19)
[2017-05-18] MEDS: VANCOMYCIN 1 GM 250 ML IVPB (12:36)
[2017-05-18 16:28] LABS: RETICULOCYTE RBC 2.04
[2017-05-18 16:28] LABS: RETICULOCYTE COUNT # 0.035 X10^6 (0.020-0.110); RETICULOCYTE COUNT % 1.7 % (0.5-1.5)
[2017-05-18 16:53] LABS: LACTATE DEHYDROGENASE 1913 IU/L (313-618)
[2017-05-18 17:49] LABS: IMMEDIATE SPIN CROSSMATCH 1 3
[2017-05-18] MEDS: HEPARIN 1000 UNITS/ML 10 ML INJ CATHETER (20:41)
[2017-05-18] MEDS: ATORVASTATIN 40 MG TAB PO (21:44)
[2017-05-18] MEDS: FAMOTIDINE 20 MG TAB PO (21:44)
[2017-05-19] MEDS: ACCUCHECK AT 2AM (Patients on SS coverage) XX (02:00)
[2017-05-19 05:16] LABS: ADD MAN DIFF? NO
[2017-05-19] MEDS: PIPER-TAZO 2.25 GM (PMX) 50 ML IVPB ×3 (05:18→23:12)
[2017-05-19 05:25] LABS: WHITE BLOOD COUNT 6.4 10^3/ul (4.8-10.8)
[2017-05-19 05:25] LABS: BASOPHILS % 0.6 % (0.0-2.0); HEMATOCRIT 27.4 % (37.0-47.0); HEMOGLOBIN 9.3 g/dl (12.0-16.0); LYMPHOCYTES # 0.7 10^3/ul (0.8-2.9); LYMPHOCYTES % 10.2 % (15.0-51.0); MEAN CORPUSCULAR HEMOGLOBIN 29.2 pg (29.0-33.0); MEAN CORPUSCULAR HGB CONC 33.9 g/dl (32.0-37.0); MEAN CORPUSCULAR VOLUME 86.2 fl (82.0-101.0); MEAN PLATELET VOLUME 11.4 fl (7.4-10.4); MONOCYTE # 1.2 10^3/ul (0.3-0.9); MONOCYTES % 19.1 % (0.0-11.0); NEUTROPHIL # 4.3 10^3/ul (1.6-7.5); NEUTROPHILS % 67.9 % (39.0-77.0); NUCLEATED RED BLOOD CELLS% 0.3 /100WBC (0.0-0.0); PLATELET COUNT 155 10^3/UL (140-415); RED BLOOD COUNT 3.18 10^6/ul (4.20-5.40); RED CELL DISTRIBUTION WIDTH 14.1 % (11.5-14.5)
[2017-05-19 06:15] LABS: ALANINE AMINOTRANSFERASE 33 IU/L (13-69); ALBUMIN 3.4 g/dl (3.3-4.9); ALBUMIN/GLOBULIN RATIO 0.91; ALKALINE PHOSPHATASE 299 IU/L (42-121); ANION GAP 20 (8-16); ASPARTATE AMINO TRANSFERASE 62 IU/L (15-46); BILIRUBIN,TOTAL 5.1 mg/dl (0.2-1.3); BLOOD UREA NITROGEN 64 mg/dl (7-20); CALCIUM 8.7 mg/dl (8.4-10.2); CARBON DIOXIDE 25 mmol/L (21-31); CHLORIDE 101 mmol/L (97-110); CREATININE 8.51 mg/dl (0.44-1.00); GLUCOSE 110 mg/dl (70-220); MAGNESIUM 2.4 mg/dl (1.7-2.5); POTASSIUM 4.5 mmol/L (3.5-5.1); SODIUM 141 mmol/L (135-144); TOTAL PROTEIN 7.1 g/dl (6.1-8.1)
[2017-05-19] MEDS: INSULIN ASPART [NOVOLOG] 3 ML PEN SC ×7 (08:15→21:00)
[2017-05-19] MEDS: SENNA TAB PO ×2 (08:19→21:39)
[2017-05-19] MEDS: GABAPENTIN 300 MG CAP PO ×2 (08:19→21:39)
[2017-05-19] MEDS: FOLIC ACID 1 MG TAB PO (08:19)
[2017-05-19] MEDS: SEVELAMER 800 MG TAB PO ×3 (08:19→17:15)
[2017-05-19] MEDS: ALLOPURINOL 100 MG TAB PO (08:19)
[2017-05-19] MEDS: MULTIVIT/CA CARB/B CMPLX/FA TAB PO (08:19)
[2017-05-19] MEDS: NIFEdipine (XL) 30 MG TAB PO (08:20)
[2017-05-19] MEDS: MENTHOL/METH SALICYLATE 30 GM OINT TOP ×3 (08:20→21:00)
[2017-05-19] MEDS: LOSARTAN 25 MG TAB PO (08:20)
[2017-05-19] MEDS ORDERED: ALBUMIN HUMAN 25% 50 ML IV (10:00)
[2017-05-19 15:16] LABS: INR 1.11; PROTIME 14.5 Sec (11.9-14.9); PT RATIO 1.1
[2017-05-19 15:17] LABS: PARTIAL THROMBOPLASTIN TIME 33.7 Sec (25.0-35.0)
[2017-05-19 15:21] LABS: IMMUNOGLOBULIN A 424 mg/dl (70-400); IMMUNOGLOBULIN G 877 mg/dl (700-1600); IMMUNOGLOBULIN M 126 mg/dl (40-230)
[2017-05-19 15:55] LABS: D-DIMER 5067.41 ng/ml (<460)
[2017-05-19] MEDS: EPOETIN ALFA (NESRD) 3,000 UNITS/ML VIAL SC (17:16)
[2017-05-19] MEDS: ATORVASTATIN 40 MG TAB PO (21:38)
[2017-05-19] MEDS: FAMOTIDINE 20 MG TAB PO (21:39)
[2017-05-19 21:56] LABS: COLD AGGLUTININ 1:32 (<=1:32)
[2017-05-20] MEDS: ACCUCHECK AT 2AM (Patients on SS coverage) XX (02:00)
[2017-05-20 05:57] LABS: ADD MAN DIFF? NO
[2017-05-20 05:58] LABS: BASOPHILS % 0.8 % (0.0-2.0); HEMATOCRIT 24.5 % (37.0-47.0); HEMOGLOBIN 8.2 g/dl (12.0-16.0); LYMPHOCYTES # 0.8 10^3/ul (0.8-2.9); LYMPHOCYTES % 15.3 % (15.0-51.0); MEAN CORPUSCULAR HGB CONC 33.5 g/dl (32.0-37.0); MEAN CORPUSCULAR VOLUME 86.6 fl (82.0-101.0); MEAN PLATELET VOLUME 11.8 fl (7.4-10.4); MONOCYTE # 0.8 10^3/ul (0.3-0.9); MONOCYTES % 15.5 % (0.0-11.0); NEUTROPHIL # 3.4 10^3/ul (1.6-7.5); NEUTROPHILS % 66.8 % (39.0-77.0); PLATELET COUNT 150 10^3/UL (140-415); RED BLOOD COUNT 2.83 10^6/ul (4.20-5.40); RED CELL DISTRIBUTION WIDTH 14.9 % (11.5-14.5)
[2017-05-20 06:00] LABS: RETICULOCYTE COUNT # 0.058 X10^6 (0.020-0.110)
[2017-05-20 06:00] LABS: RETICULOCYTE RBC 2.84
[2017-05-20 06:14] LABS: IRON 45 ug/dl (35-150)
[2017-05-20 06:18] LABS: ALANINE AMINOTRANSFERASE 37 IU/L (13-69); ALBUMIN 3.5 g/dl (3.3-4.9); ALBUMIN/GLOBULIN RATIO 0.94; ALKALINE PHOSPHATASE 311 IU/L (42-121); ANION GAP 21 (8-16); ASPARTATE AMINO TRANSFERASE 48 IU/L (15-46); BILIRUBIN,TOTAL 1.5 mg/dl (0.2-1.3); BLOOD UREA NITROGEN 82 mg/dl (7-20); CALCIUM 8.7 mg/dl (8.4-10.2); CARBON DIOXIDE 22 mmol/L (21-31); CHLORIDE 100 mmol/L (97-110); CREATININE 11.23 mg/dl (0.44-1.00); GLUCOSE 115 mg/dl (70-220); POTASSIUM 4.6 mmol/L (3.5-5.1); SODIUM 138 mmol/L (135-144); TOTAL PROTEIN 7.2 g/dl (6.1-8.1)
[2017-05-20 06:19] LABS: BILIRUBIN,TOTAL 1.6 mg/dl (0.2-1.3)
[2017-05-20 06:24] LABS: % IRON SATURATION 22 % SAT (22-52); TOTAL IRON BINDING CAPACITY 209 ug/dl (241-421)
[2017-05-20] MEDS: PIPER-TAZO 2.25 GM (PMX) 50 ML IVPB ×3 (06:28→21:36)
[2017-05-20] MEDS: INSULIN ASPART [NOVOLOG] 3 ML PEN SC ×7 (08:21→21:00)
[2017-05-20] MEDS: SEVELAMER 800 MG TAB PO ×3 (08:23→17:34)
[2017-05-20] MEDS: MULTIVIT/CA CARB/B CMPLX/FA TAB PO (08:23)
[2017-05-20] MEDS: ALLOPURINOL 100 MG TAB PO (08:23)
[2017-05-20] MEDS: SENNA TAB PO ×2 (08:24→21:35)
[2017-05-20] MEDS: FOLIC ACID 1 MG TAB PO (08:24)
[2017-05-20] MEDS: MENTHOL/METH SALICYLATE 30 GM OINT TOP ×3 (08:24→21:44)
[2017-05-20] MEDS: LOSARTAN 25 MG TAB PO (09:00)
[2017-05-20] MEDS: HEPARIN 1000 UNITS/ML 10 ML INJ CATHETER (14:42)
[2017-05-20 15:11] LABS: HAPTOGLOBIN <15 mg/dL (43-212)
[2017-05-20] MEDS: FLUCONAZOLE 100 MG TAB PO (15:22)
[2017-05-20] MEDS: GABAPENTIN 100 MG CAP PO (15:22)
[2017-05-20] MEDS: HYDROCODONE/APAP (5/325) TAB PO (18:22)
[2017-05-20] MEDS: FAMOTIDINE 20 MG TAB PO (21:34)
[2017-05-20] MEDS: GABAPENTIN 300 MG CAP PO (21:35)
[2017-05-20] MEDS: ATORVASTATIN 40 MG TAB PO (21:35)
[2017-05-21] MEDS: ACCUCHECK AT 2AM (Patients on SS coverage) XX (01:40)
[2017-05-21] MEDS: PIPER-TAZO 2.25 GM (PMX) 50 ML IVPB (06:01)
[2017-05-21 06:09] LABS: ADD MAN DIFF? NO
[2017-05-21 06:11] LABS: BASOPHILS % 0.6 % (0.0-2.0); HEMATOCRIT 25.4 % (37.0-47.0); HEMOGLOBIN 8.4 g/dl (12.0-16.0); LYMPHOCYTES # 0.7 10^3/ul (0.8-2.9); LYMPHOCYTES % 14.4 % (15.0-51.0); MEAN CORPUSCULAR HGB CONC 33.1 g/dl (32.0-37.0); MEAN CORPUSCULAR VOLUME 87.6 fl (82.0-101.0); MEAN PLATELET VOLUME 10.8 fl (7.4-10.4); MONOCYTE # 0.5 10^3/ul (0.3-0.9); MONOCYTES % 9.9 % (0.0-11.0); NEUTROPHIL # 3.8 10^3/ul (1.6-7.5); NEUTROPHILS % 73.5 % (39.0-77.0); PLATELET COUNT 174 10^3/UL (140-415); RED CELL DISTRIBUTION WIDTH 14.7 % (11.5-14.5)
[2017-05-21 06:11] LABS: WHITE BLOOD COUNT 5.1 10^3/ul (4.8-10.8)
[2017-05-21 06:35] LABS: ALANINE AMINOTRANSFERASE 33 IU/L (13-69); ALBUMIN 3.3 g/dl (3.3-4.9); ALKALINE PHOSPHATASE 314 IU/L (42-121); ASPARTATE AMINO TRANSFERASE 35 IU/L (15-46); BILIRUBIN,INDIRECT 0.6 mg/dl (0-1.1); BILIRUBIN,TOTAL 0.6 mg/dl (0.2-1.3); TOTAL PROTEIN 6.8 g/dl (6.1-8.1)
[2017-05-21] MEDS: INSULIN ASPART [NOVOLOG] 3 ML PEN SC ×4 (08:15→13:18)
[2017-05-21] MEDS: MULTIVIT/CA CARB/B CMPLX/FA TAB PO (08:35)
[2017-05-21] MEDS: ALLOPURINOL 100 MG TAB PO (08:36)
[2017-05-21] MEDS: SEVELAMER 800 MG TAB PO ×2 (08:36→12:34)
[2017-05-21] MEDS: FLUCONAZOLE 100 MG TAB PO (08:36)
[2017-05-21] MEDS: GABAPENTIN 100 MG CAP PO ×2 (08:36→12:34)
[2017-05-21] MEDS: SENNA TAB PO (08:36)
[2017-05-21] MEDS: MENTHOL/METH SALICYLATE 30 GM OINT TOP ×2 (09:00→13:17)
[2017-05-21] MEDS: LOSARTAN 25 MG TAB PO (09:00)
[2017-05-21] MEDS: FOLIC ACID 1 MG TAB PO (09:00)
[2017-05-21 11:11] LABS: ANA SCREEN NEGATIVE (NEGATIVE)
[2017-05-21 15:41] LABS: ALBUMIN 2.7 g/dL (3.8-4.8); ALPHA-1-GLOBULINS 0.8 g/dL (0.2-0.3); ALPHA-2-GLOBULINS 0.7 g/dL (0.5-0.9); BETA 2 GLOBULINS 0.5 g/dL (0.2-0.5); BETA GLOBULINS 0.4 g/dL (0.4-0.6)
[2017-05-21 16:27] LABS: HAPTOGLOBIN <15 mg/dL (43-212)
== END 2017-05-21 15:15 | disposition home health service (06) | DRG 673 ==
LOC: MS2 05-05 15:07 → E/R 10:01
PROC: 0JH63XZ Insertion of Tunneled Vascular Access Device into Chest Subcutaneous Tissue and Fascia, Percutaneous Approach (ICD-10-PCS; principal; 2017-05-12 14:00)
PROC: 02PY33Z Removal of Infusion Device from Great Vessel, Percutaneous Approach (ICD-10-PCS; 2017-05-12 14:00)
PROC: 02HV33Z Insertion of Infusion Device into Superior Vena Cava, Percutaneous Approach (ICD-10-PCS; 2017-05-12 14:00)
PROC: 30233N1 Transfusion of Nonautologous Red Blood Cells into Peripheral Vein, Percutaneous Approach (ICD-10-PCS; 2017-05-12 18:42)
PROC: 5A1D70Z Performance of Urinary Filtration, Intermittent, Less than 6 Hours Per Day (ICD-10-PCS; 2017-05-12 18:42)
PROC: 02HV33Z Insertion of Infusion Device into Superior Vena Cava, Percutaneous Approach (ICD-10-PCS; 2017-05-12 18:42)
DX: I12.0 Hypertensive chronic kidney disease with stage 5 chronic kidney disease or end stage renal disease (principal); A41.1 Sepsis due to other specified staphylococcus; N18.6 End stage renal disease; N17.9 Acute kidney failure, unspecified; K80.63 Calculus of gallbladder and bile duct with acute cholecystitis with obstruction; E87.2 Acidosis; T82.7XXA Infection and inflammatory reaction due to other cardiac and vascular devices, implants and grafts, initial encounter; E11.21 Type 2 diabetes mellitus with diabetic nephropathy; E11.22 Type 2 diabetes mellitus with diabetic chronic kidney disease; E11.40 Type 2 diabetes mellitus with diabetic neuropathy, unspecified; E66.01 Morbid (severe) obesity due to excess calories; E83.39 Other disorders of phosphorus metabolism; E87.70 Fluid overload, unspecified; E78.00 Pure hypercholesterolemia, unspecified; E78.5 Hyperlipidemia, unspecified; E79.0 Hyperuricemia without signs of inflammatory arthritis and tophaceous disease; D63.1 Anemia in chronic kidney disease; F17.210 Nicotine dependence, cigarettes, uncomplicated; I25.10 Atherosclerotic heart disease of native coronary artery without angina pectoris; I35.1 Nonrheumatic aortic (valve) insufficiency; M25.572 Pain in left ankle and joints of left foot; M25.571 Pain in right ankle and joints of right foot; Z68.32 Body mass index [BMI] 32.0-32.9, adult
CPT/HCPCS: 36415; 36430; 71045; 71048; 73600-50; 74181; 76705; 78226; 80048; 80053; 80076; 80202; 81001; 82247; 82248; 82565; 82728; 82784; 82962; 83010; 83540; 83615; 83735; 83880; 84100; 84155; 84165; 84484; 84520; 84560; 85014; 85018; 85025; 85045; 85378; 85384; 85610; 85730; 86038; 86157; 86320; 86704; 86709; 86803; 86850; 86870; 86880; 86900; 86901; 86902; 86920; 87040; 87086; 87340; 90935; 93005; 93306; 93308; 93970; 96372; 96374; 96375; 96376; 97110; 97116; 97162; 97530; 99291-25

== ENCOUNTER 2017-09-01 15:26 | Observation (INO) | payer OTHER ==
[2017-09-01] MEDS: ALTEPLASE (CATHFLO) 2 MG INJ CATHETER ×2 (19:40)
[2017-09-01] MEDS ORDERED: ACETAMINOPHEN 325 MG TAB PO ×2 (20:30→22:30)
[2017-09-01] MEDS ORDERED: ONDANSETRON 4 MG INJ IV (20:30)
[2017-09-01] MEDS: NA BICARBONATE 8.4% 50 ML SYG IV (20:45)
[2017-09-01] MEDS: DEXTROSE 50% 50 ML SYRINGE IV (20:46)
[2017-09-01] MEDS: CA CHLORIDE 10% 10 ML SYRINGE IV (20:46)
[2017-09-01] MEDS: INSULIN REGULAR, HUMAN 100 UNIT/1 ML 3ML VIAL IVP (20:48)
[2017-09-01] MEDS: NA POLYST SULFON 15 GM/60 ML BTL PO (21:06)
[2017-09-01] MEDS ORDERED: SOD CHLORIDE 0.9% 1,000 ML IV (21:57)
[2017-09-01] MEDS ORDERED: ALBUMIN HUMAN 25% 100 ML IV (22:00)
[2017-09-01] MEDS ORDERED: DOCUSATE SODIUM 100 MG CAP PO (22:30)
[2017-09-01 22:55] LABS: HEPATITIS B SURFACE ANTIGEN NEGATIVE (NEGATIVE)
[2017-09-01] MEDS: BISACODYL (EC) 5 MG TAB PO (23:15)
[2017-09-01] MEDS ORDERED: GLUCOSE GEL 15 GRAM TUBE PO ×2 (23:30)
[2017-09-01] MEDS ORDERED: GLUCAGON 1 MG INJ IM (23:30)
[2017-09-01] MEDS ORDERED: DEXTROSE 50% 50 ML SYRINGE IV ×2 (23:30)
[2017-09-01] MEDS ORDERED: GLUCOSE GEL 15 GRAM TUBE BUCCAL (23:30)
[2017-09-02] MEDS: HEPARIN 1000 UNITS/ML 10 ML INJ HE (01:16)
[2017-09-02] MEDS: GABAPENTIN 300 MG CAP PO (02:47)
[2017-09-02] MEDS: HEPARIN 1000 UNITS/ML 10 ML INJ CATHETER (04:19)
[2017-09-02 06:06] LABS: ADD MAN DIFF? NO
[2017-09-02 06:15] LABS: ABNORMAL IP MESSAGE 1; BASOPHILS % 0.7 % (0.0-2.0); HEMATOCRIT 34.3 % (37.0-47.0); HEMOGLOBIN 11.1 g/dl (12.0-16.0); LYMPHOCYTES # 0.6 10^3/ul (0.8-2.9); LYMPHOCYTES % 9.5 % (15.0-51.0); MEAN CORPUSCULAR HEMOGLOBIN 30.9 pg (29.0-33.0); MEAN CORPUSCULAR HGB CONC 32.4 g/dl (32.0-37.0); MEAN CORPUSCULAR VOLUME 95.5 fl (82.0-101.0); MEAN PLATELET VOLUME 10.6 fl (7.4-10.4); MONOCYTE # 0.5 10^3/ul (0.3-0.9); MONOCYTES % 7.5 % (0.0-11.0); NEUTROPHIL # 4.9 10^3/ul (1.6-7.5); NEUTROPHILS % 81.8 % (39.0-77.0); NUCLEATED RED BLOOD CELLS% 0.3 /100WBC (0.0-0.0); PLATELET COUNT 210 10^3/UL (140-415); RED BLOOD COUNT 3.59 10^6/ul (4.20-5.40); RED CELL DISTRIBUTION WIDTH 16.1 % (11.5-14.5)
[2017-09-02 06:31] LABS: POSITIVE DIFF @See below
[2017-09-02 06:41] LABS: ALANINE AMINOTRANSFERASE 15 IU/L (13-69); ALBUMIN 4.3 g/dl (3.3-4.9); ALBUMIN/GLOBULIN RATIO 1.38; ALKALINE PHOSPHATASE 109 IU/L (42-121); ANION GAP 17 (8-16); ASPARTATE AMINO TRANSFERASE 13 IU/L (15-46); BILIRUBIN,INDIRECT 0.1 mg/dl (0-1.1); BILIRUBIN,TOTAL 0.1 mg/dl (0.2-1.3); CALCIUM 8.8 mg/dl (8.4-10.2); CARBON DIOXIDE 23 mmol/L (21-31); CHLORIDE 106 mmol/L (97-110); CREATININE 9.98 mg/dl (0.44-1.00); GLUCOSE 113 mg/dl (70-220); POTASSIUM 4.1 mmol/L (3.5-5.1); SODIUM 142 mmol/L (135-144); TOTAL PROTEIN 7.4 g/dl (6.1-8.1)
[2017-09-02 07:34] LABS: BLOOD UREA NITROGEN 57 mg/dl (7-20)
[2017-09-02] MEDS: ACCU-CHEK XX ×2 (07:41→11:45)
[2017-09-02] MEDS: GABAPENTIN 100 MG CAP PO (07:42)
[2017-09-02] MEDS: SEVELAMER CARBONATE 800 MG TABLET PO ×2 (07:42→11:47)
[2017-09-02] MEDS: INSULIN ASPART [NOVOLOG] 3 ML PEN SC ×2 (07:45→12:02)
[2017-09-02] MEDS ORDERED: SEVELAMER 800 MG TAB PO (07:55)
[2017-09-02] MEDS: CALCIUM ACETATE 667 MG CAP PO ×2 (08:44→11:46)
[2017-09-02] MEDS: FOLIC ACID 1 MG TAB PO (08:45)
[2017-09-02] MEDS: MULTIVIT/CA CARB/B CMPLX/FA TAB PO (08:45)
[2017-09-02] MEDS: LOSARTAN 50 MG TAB PO (08:46)
[2017-09-02] MEDS: ALLOPURINOL 100 MG TAB PO (08:46)
[2017-09-02] MEDS: METOPROLOL 25 MG TAB PO (08:47)
[2017-09-02] MEDS: BISACODYL (EC) 5 MG TAB PO (08:54)
[2017-09-02] MEDS: NICOTINE (21 MG/24 HR) PATCH TRANSDERM (11:46)
[2017-09-02] MEDS ORDERED: ATORVASTATIN 40 MG TAB PO (21:00)
[2017-09-02] MEDS ORDERED: GABAPENTIN 300 MG CAP PO (21:00)
== END 2017-09-02 11:30 | disposition home or self-care (01) ==
LOC: E/R 15:26 → TEL 20:22
PROVIDERS: Internal Medicine Nephrology
DX: T82.49XA Other complication of vascular dialysis catheter, initial encounter (principal); Y84.1 Kidney dialysis as the cause of abnormal reaction of the patient, or of later complication, without mention of misadventure at the time of the procedure; I12.0 Hypertensive chronic kidney disease with stage 5 chronic kidney disease or end stage renal disease; N18.6 End stage renal disease; Z99.2 Dependence on renal dialysis; E11.9 Type 2 diabetes mellitus without complications; Z79.4 Long term (current) use of insulin; E78.5 Hyperlipidemia, unspecified; D64.9 Anemia, unspecified; E83.39 Other disorders of phosphorus metabolism; E21.3 Hyperparathyroidism, unspecified; Z91.19 Patient's noncompliance with other medical treatment and regimen; I25.10 Atherosclerotic heart disease of native coronary artery without angina pectoris
CPT/HCPCS: 80053; 82962; 84132; 85025; 87081; 87340; 90935; 93005; 99285-25; G0378

== ENCOUNTER 2017-09-25 20:00 | Emergency (ER) | payer OTHER ==
[2017-09-25 21:11] LABS: ADD MAN DIFF? NO
[2017-09-25 21:12] LABS: BASOPHIL # 0.1 10^3/ul (0.0-0.1); BASOPHILS % 0.7 % (0.0-2.0); HEMOGLOBIN 10.9 g/dl (12.0-16.0); LYMPHOCYTES # 0.9 10^3/ul (0.8-2.9); LYMPHOCYTES % 10.8 % (15.0-51.0); MEAN CORPUSCULAR HEMOGLOBIN 32.2 pg (29.0-33.0); MEAN CORPUSCULAR HGB CONC 32.1 g/dl (32.0-37.0); MEAN CORPUSCULAR VOLUME 100.6 fl (82.0-101.0); MEAN PLATELET VOLUME 10.6 fl (7.4-10.4); MONOCYTE # 0.6 10^3/ul (0.3-0.9); MONOCYTES % 7.6 % (0.0-11.0); NEUTROPHIL # 6.4 10^3/ul (1.6-7.5); NEUTROPHILS % 79.5 % (39.0-77.0); PLATELET COUNT 187 10^3/UL (140-415); RED BLOOD COUNT 3.38 10^6/ul (4.20-5.40); RED CELL DISTRIBUTION WIDTH 16.6 % (11.5-14.5)
[2017-09-25 22:23] LABS: ALANINE AMINOTRANSFERASE 15 IU/L (13-69); ALBUMIN/GLOBULIN RATIO 1.33; ALKALINE PHOSPHATASE 107 IU/L (42-121); ANION GAP 23 (8-16); ASPARTATE AMINO TRANSFERASE 22 IU/L (15-46); BILIRUBIN,INDIRECT 0.1 mg/dl (0-1.1); BILIRUBIN,TOTAL 0.1 mg/dl (0.2-1.3); BLOOD UREA NITROGEN 82 mg/dl (7-20); CALCIUM 9.8 mg/dl (8.4-10.2); CARBON DIOXIDE 18 mmol/L (21-31); CHLORIDE 106 mmol/L (97-110); GLUCOSE 169 mg/dl (70-220); MAGNESIUM 2.3 mg/dl (1.7-2.5); POTASSIUM 5.8 mmol/L (3.5-5.1); SODIUM 141 mmol/L (135-144)
[2017-09-25] MEDS: NA POLYST SULFON 15 GM/60 ML BTL PO (22:30)
[2017-09-25 22:34] LABS: CREATININE 13.14 mg/dl (0.44-1.00)
[2017-09-25] MEDS: ALTEPLASE (CATHFLO) 2 MG INJ CATHETER ×2 (22:44)
== END 2017-09-25 23:47 | disposition home or self-care (01) ==
LOC: E/R 23:47
DX: N17.9 Acute kidney failure, unspecified (principal); N18.6 End stage renal disease; E11.22 Type 2 diabetes mellitus with diabetic chronic kidney disease; I12.0 Hypertensive chronic kidney disease with stage 5 chronic kidney disease or end stage renal disease; F17.210 Nicotine dependence, cigarettes, uncomplicated; Y73.2 Prosthetic and other implants, materials and accessory gastroenterology and urology devices associated with adverse incidents
CPT/HCPCS: 71045; 80053; 83735; 84100; 85025; 99284-25

== ENCOUNTER 2018-04-01 14:29 | Inpatient (IN) | payer OTHER ==
[2018-04-01 15:49] LABS: ADD MAN DIFF? NO
[2018-04-01 15:52] LABS: BASOPHIL # 0.1 10^3/ul (0.0-0.1); BASOPHILS % 0.6 % (0.0-2.0); HEMATOCRIT 36.2 % (37.0-47.0); HEMOGLOBIN 11.4 g/dl (12.0-16.0); LYMPHOCYTES % 11.6 % (15.0-51.0); MEAN CORPUSCULAR HEMOGLOBIN 32.7 pg (29.0-33.0); MEAN CORPUSCULAR HGB CONC 31.5 g/dl (32.0-37.0); MEAN CORPUSCULAR VOLUME 103.7 fl (82.0-101.0); MEAN PLATELET VOLUME 10.9 fl (7.4-10.4); MONOCYTE # 0.5 10^3/ul (0.3-0.9); MONOCYTES % 6.2 % (0.0-11.0); NEUTROPHIL # 6.8 10^3/ul (1.6-7.5); NEUTROPHILS % 81.1 % (39.0-77.0); PLATELET COUNT 183 10^3/UL (140-415); RED BLOOD COUNT 3.49 10^6/ul (4.20-5.40); RED CELL DISTRIBUTION WIDTH 14.6 % (11.5-14.5)
[2018-04-01 15:52] LABS: WHITE BLOOD COUNT 8.3 10^3/ul (4.8-10.8)
[2018-04-01 16:09] LABS: ANION GAP 17 (5-13); BLOOD UREA NITROGEN 95 mg/dl (7-20); CALCIUM 9.4 mg/dl (8.4-10.2); CARBON DIOXIDE 20 mmol/L (21-31); CHLORIDE 104 mmol/L (97-110); GLUCOSE 216 mg/dl (70-220); SODIUM 141 mmol/L (135-144)
[2018-04-01 16:15] LABS: POTASSIUM 6.3 mmol/L (3.5-5.1)
[2018-04-01 16:18] LABS: CREATININE 17.34 mg/dl (0.44-1.00); Estimated GFR 2 mL/min (>60); INR 0.89; PROTIME 12.1 Sec (11.9-14.9); PT RATIO 0.9
[2018-04-01 16:19] LABS: PARTIAL THROMBOPLASTIN TIME 29.1 Sec (23.0-35.0)
[2018-04-01] MEDS: NA POLYST SULFON 15 GM/60 ML BTL PO (16:36)
[2018-04-01] MEDS ORDERED: ACETAMINOPHEN 325 MG TAB PO ×2 (18:00→20:30)
[2018-04-01] MEDS ORDERED: ONDANSETRON 4 MG INJ IV (18:00)
[2018-04-01] MEDS ORDERED: DOCUSATE SODIUM 100 MG CAP PO (20:30)
[2018-04-01] MEDS ORDERED: BISACODYL 10 MG SUPP PR (20:30)
[2018-04-01] MEDS ORDERED: NACL 0.9% 3 ML SYG IV (20:30)
[2018-04-01] MEDS ORDERED: ACETAMINOPHEN 650 MG SUPP PR (20:30)
[2018-04-01] MEDS ORDERED: BISACODYL (EC) 5 MG TAB PO (20:30)
[2018-04-01] MEDS ORDERED: ZOLPIDEM 5 MG TAB PO (20:30)
[2018-04-01] MEDS ORDERED: LORAZEPAM 1 MG TAB PO (21:00)
[2018-04-01] MEDS: ATORVASTATIN 40 MG TAB PO (21:13)
[2018-04-01] MEDS: SODIUM POLYSTYRENE 15 GM KIT (POWDER + SORBITOL) PO (21:13)
[2018-04-01] MEDS: GABAPENTIN 100 MG CAP PO (21:14)
[2018-04-01] MEDS: GABAPENTIN 300 MG CAP PO (21:14)
[2018-04-01] MEDS: METOPROLOL 25 MG TAB PO (21:15)
[2018-04-01] MEDS: DIPHENHYDRAMINE 25 MG CAP PO (22:05)
[2018-04-01] MEDS: ALTEPLASE (CATHFLO) 2 MG INJ CATHETER ×2 (23:03→23:04)
[2018-04-02] MEDS: LORAZEPAM 1 MG TAB PO (01:56)
[2018-04-02] MEDS: ALTEPLASE (CATHFLO) 2 MG INJ CATHETER ×2 (02:12→02:13)
[2018-04-02 07:21] LABS: ADD MAN DIFF? NO
[2018-04-02 07:25] LABS: WHITE BLOOD COUNT 6.9 10^3/ul (4.8-10.8)
[2018-04-02 07:25] LABS: BASOPHILS % 0.6 % (0.0-2.0); HEMATOCRIT 33.4 % (37.0-47.0); HEMOGLOBIN 10.4 g/dl (12.0-16.0); LYMPHOCYTES % 13.8 % (15.0-51.0); MEAN CORPUSCULAR HEMOGLOBIN 32.6 pg (29.0-33.0); MEAN CORPUSCULAR HGB CONC 31.1 g/dl (32.0-37.0); MEAN CORPUSCULAR VOLUME 104.7 fl (82.0-101.0); MEAN PLATELET VOLUME 11.1 fl (7.4-10.4); MONOCYTE # 0.5 10^3/ul (0.3-0.9); MONOCYTES % 7.1 % (0.0-11.0); NEUTROPHIL # 5.4 10^3/ul (1.6-7.5); NEUTROPHILS % 77.9 % (39.0-77.0); PLATELET COUNT 168 10^3/UL (140-415); RED BLOOD COUNT 3.19 10^6/ul (4.20-5.40); RED CELL DISTRIBUTION WIDTH 14.5 % (11.5-14.5)
[2018-04-02 07:49] LABS: ALANINE AMINOTRANSFERASE 10 IU/L (13-69); ALBUMIN 3.8 g/dl (3.3-4.9); ALBUMIN/GLOBULIN RATIO 1.22; ALKALINE PHOSPHATASE 83 IU/L (42-121); ANION GAP 16 (5-13); ASPARTATE AMINO TRANSFERASE 12 IU/L (15-46); BLOOD UREA NITROGEN 96 mg/dl (7-20); CALCIUM 8.9 mg/dl (8.4-10.2); CARBON DIOXIDE 17 mmol/L (21-31); CHLORIDE 110 mmol/L (97-110); GLUCOSE 106 mg/dl (70-220); SODIUM 143 mmol/L (135-144); TOTAL PROTEIN 6.9 g/dl (6.1-8.1)
[2018-04-02 07:50] LABS: HEMOGLOBIN A1C 7.4 % (0-5.9)
[2018-04-02] MEDS: CALCIUM ACETATE 667 MG CAP PO ×3 (07:55→17:28)
[2018-04-02 07:56] LABS: CREATININE 17.98 mg/dl (0.44-1.00); Estimated GFR 2 mL/min (>60)
[2018-04-02] MEDS: METOPROLOL 25 MG TAB PO (08:27)
[2018-04-02] MEDS: FOLIC ACID 1 MG TAB PO (08:27)
[2018-04-02] MEDS: MULTIVIT/CA CARB/B CMPLX/FA TAB PO (08:27)
[2018-04-02] MEDS: GABAPENTIN 100 MG CAP PO (08:27)
[2018-04-02] MEDS: CHOLECALCIFEROL 400 UNITS TAB PO (08:27)
[2018-04-02] MEDS: SOD CHLORIDE 0.45% 1,000 ML IV (11:00)
[2018-04-02 11:21] LABS: HEPATITIS B SURFACE ANTIGEN NEGATIVE (NEGATIVE)
[2018-04-02 11:39] LABS: HEPATITIS B SURFACE ANTIBODY POSITIVE (NEGATIVE)
[2018-04-02] MEDS ORDERED: FENTAnyl 50 MCG/ML VIAL (16:47)
[2018-04-02] MEDS ORDERED: MIDAZOLAM 1 MG/ML 2 ML INJ (16:47)
[2018-04-02] MEDS ORDERED: HEPARIN 1000 UNITS/ML 10 ML INJ (16:48)
[2018-04-02] MEDS ORDERED: LIDOCAINE 1% (MDV) 20 ML INJ (16:49)
[2018-04-02] MEDS ORDERED: HEPARIN 1000 UNITS/NS (A-LINE) 1,000 ML (16:49)
[2018-04-03] MEDS: HEPARIN 1000 UNITS/ML 10 ML INJ CATHETER (00:02)
[2018-04-03] MEDS: GABAPENTIN 300 MG CAP PO (00:14)
[2018-04-03] MEDS: ATORVASTATIN 40 MG TAB PO (00:14)
[2018-04-03] MEDS: GABAPENTIN 100 MG CAP PO ×2 (00:14→08:18)
[2018-04-03] MEDS: METOPROLOL 25 MG TAB PO ×2 (00:15→08:19)
[2018-04-03] MEDS: LORAZEPAM 1 MG TAB PO (01:27)
[2018-04-03] MEDS: CHOLECALCIFEROL 400 UNITS TAB PO (08:17)
[2018-04-03] MEDS: CALCIUM ACETATE 667 MG CAP PO (08:17)
[2018-04-03] MEDS: FOLIC ACID 1 MG TAB PO (08:17)
[2018-04-03] MEDS: MULTIVIT/CA CARB/B CMPLX/FA TAB PO (08:18)
[2018-04-03 08:36] LABS: ALANINE AMINOTRANSFERASE 10 IU/L (13-69); ALBUMIN/GLOBULIN RATIO 1.37; ALKALINE PHOSPHATASE 97 IU/L (42-121); ANION GAP 17 (5-13); ASPARTATE AMINO TRANSFERASE 16 IU/L (15-46); BILIRUBIN,INDIRECT 0.4 mg/dl (0-1.1); BILIRUBIN,TOTAL 0.4 mg/dl (0.2-1.3); BLOOD UREA NITROGEN 61 mg/dl (7-20); CARBON DIOXIDE 22 mmol/L (21-31); CHLORIDE 100 mmol/L (97-110); Estimated GFR 3 mL/min (>60); GLUCOSE 147 mg/dl (70-220); POTASSIUM 4.3 mmol/L (3.5-5.1); SODIUM 139 mmol/L (135-144); TOTAL PROTEIN 6.9 g/dl (6.1-8.1)
== END 2018-04-03 09:16 | disposition home or self-care (01) | DRG 314 ==
LOC: E/R 14:29 → TEL 18:48
PROC: 02PYX3Z Removal of Infusion Device from Great Vessel, External Approach (ICD-10-PCS; principal; 2018-04-02 16:00)
PROC: 02HV33Z Insertion of Infusion Device into Superior Vena Cava, Percutaneous Approach (ICD-10-PCS; 2018-04-02 16:00)
PROC: B518ZZA Fluoroscopy of Superior Vena Cava, Guidance (ICD-10-PCS; 2018-04-02 16:00)
PROC: 5A1D70Z Performance of Urinary Filtration, Intermittent, Less than 6 Hours Per Day (ICD-10-PCS; 2018-04-02 16:35)
DX: T82.41XA Breakdown (mechanical) of vascular dialysis catheter, initial encounter (principal); N18.6 End stage renal disease; I12.0 Hypertensive chronic kidney disease with stage 5 chronic kidney disease or end stage renal disease; T82.7XXA Infection and inflammatory reaction due to other cardiac and vascular devices, implants and grafts, initial encounter; E11.22 Type 2 diabetes mellitus with diabetic chronic kidney disease; Z99.2 Dependence on renal dialysis; E11.40 Type 2 diabetes mellitus with diabetic neuropathy, unspecified; F17.210 Nicotine dependence, cigarettes, uncomplicated; E87.5 Hyperkalemia; E66.9 Obesity, unspecified; Z68.35 Body mass index [BMI] 35.0-35.9, adult; E78.00 Pure hypercholesterolemia, unspecified; Z79.4 Long term (current) use of insulin; E11.21 Type 2 diabetes mellitus with diabetic nephropathy; D64.9 Anemia, unspecified; R53.81 Other malaise; Y84.1 Kidney dialysis as the cause of abnormal reaction of the patient, or of later complication, without mention of misadventure at the time of the procedure
CPT/HCPCS: 36415; 71045; 80048; 80053; 82962; 83036; 85025; 85610; 85730; 86706; 87340; 90935; 93005; 99285-25

== ENCOUNTER 2018-07-10 06:48 | Emergency (ER) | payer OTHER ==
[2018-07-10 07:53] LABS: ADD MAN DIFF? NO
[2018-07-10 07:54] LABS: BASOPHIL # 0.1 10^3/ul (0.0-0.1); BASOPHILS % 0.8 % (0.0-2.0); HEMATOCRIT 37.6 % (37.0-47.0); LYMPHOCYTES # 0.9 10^3/ul (0.8-2.9); LYMPHOCYTES % 11.9 % (15.0-51.0); MEAN CORPUSCULAR HEMOGLOBIN 31.1 pg (29.0-33.0); MEAN CORPUSCULAR HGB CONC 31.9 g/dl (32.0-37.0); MEAN CORPUSCULAR VOLUME 97.4 fl (82.0-101.0); MEAN PLATELET VOLUME 11.4 fl (7.4-10.4); MONOCYTE # 0.6 10^3/ul (0.3-0.9); NEUTROPHILS % 78.8 % (39.0-77.0); PLATELET COUNT 193 10^3/UL (140-415); RED BLOOD COUNT 3.86 10^6/ul (4.20-5.40); RED CELL DISTRIBUTION WIDTH 16.3 % (11.5-14.5)
[2018-07-10 07:54] LABS: WHITE BLOOD COUNT 7.6 10^3/ul (4.8-10.8)
[2018-07-10 08:58] LABS: ALANINE AMINOTRANSFERASE 15 IU/L (13-69); ALBUMIN 4.2 g/dl (3.3-4.9); ALBUMIN/GLOBULIN RATIO 1.13; ALKALINE PHOSPHATASE 99 IU/L (42-121); ANION GAP 12 (5-13); ASPARTATE AMINO TRANSFERASE 14 IU/L (15-46); BILIRUBIN,INDIRECT 0.3 mg/dl (0-1.1); BILIRUBIN,TOTAL 0.3 mg/dl (0.2-1.3); BLOOD UREA NITROGEN 44 mg/dl (7-20); CALCIUM 9.9 mg/dl (8.4-10.2); CARBON DIOXIDE 32 mmol/L (21-31); CHLORIDE 100 mmol/L (97-110); Estimated GFR 5 mL/min (>60); GLUCOSE 125 mg/dl (70-220); POTASSIUM 5.5 mmol/L (3.5-5.1); SODIUM 144 mmol/L (135-144); TOTAL PROTEIN 7.9 g/dl (6.1-8.1)
== END 2018-07-10 09:44 | disposition home or self-care (01) ==
LOC: E/R 09:44
DX: R20.0 Anesthesia of skin (principal); I12.0 Hypertensive chronic kidney disease with stage 5 chronic kidney disease or end stage renal disease; G62.9 Polyneuropathy, unspecified; N18.6 End stage renal disease; E11.22 Type 2 diabetes mellitus with diabetic chronic kidney disease; Z79.4 Long term (current) use of insulin; Z99.2 Dependence on renal dialysis
CPT/HCPCS: 70450; 80053; 85025; 99284-25